=== PATIENT | female | born 1975 | race Caucasian/White ===

== ENCOUNTER 2022-12-10 13:38 | Outpatient (CLI) | payer OTHER, SELFPAY ==
--- NOTE | 2022-12-10 14:08 | US_ITS ---
WS: [id number] US pelv w/transvag [id number] HISTORY: Menses, irregular COMPARISON: None available. Uterus: 9.9 cm x 5.8 cm x 5.0 cm. Normal size anteverted uterus. No fibroid or mass. Endometrium: 1.7 cm. Minimally prominent and heterogeneous appearance of the endometrium may be relat ed to the menstrual cycle and retained blood products. No increased vascularity. Right ovary: 4.7 cm x 4.1 cm x 2.3 cm. Mildly enlarged ovary. There is a small simple cyst measuring 2.0 x 3.5 x 1.9 cm. No solid mass. Normal vascularity. Left ovary: 2.1 cm x 2.0 cm x 1.4 cm. Normal size and vascularity, no cystic or solid masses. No free fluid in the cul-de-sac. US/US pelv w/transvag [id number] IMPRESSION: 1. Very minimally thickened heterogeneous endometrium is probably related to t he menstrual cycle and retained products of menses. No increased vascularity. 2. Simple RIGHT ovarian cyst with a maximum diameter of 3.5 cm, O-RADS 2.
== END 2022-12-10 13:39 | disposition home or self-care (01) ==
PROVIDERS: PCP Nurse Practitioner Family; Visit Provider Nurse Practitioner Family
DX: N92.6 Irregular menstruation, unspecified (principal); R93.89 Abnormal findings on diagnostic imaging of other specified body structures; N83.291 Other ovarian cyst, right side
CPT/HCPCS: 76830; 76856